=== PATIENT | male | born 1940 | race African-American/Black ===

== ENCOUNTER 2018-05-24 08:00 | Inpatient (IN) | payer MEDICARE, MEDICAID, OTHER ==
[~2018-05-24] VITALS: Ht 180.3 cm; Wt 76.7 kg
[~2018-05-24 08:00] MED LIST: BENA5TAB6 PO; GLIP10TA10 PO; INSU100I4; METF-517 PO
[2018-05-24 09:55] LABS: CHLORIDE 101 mEq/L (98-107)
[2018-05-24 10:02] LABS: BASOPHILS % 0.4 % (0.0-2.0); EOSINOPHILS % 1.3 % (0.0-5.0); HEMATOCRIT. 27.9 % (42.0-52.0); HEMOGLOBIN. 8.5 g/dL (14.0-18.0); LYMPHOCYTES % 8.4 % (20.0-50.0); MEAN CORPUSCULAR HEMOGLOBIN 24.1 pg (28.0-32.0); MEAN CORPUSCULAR VOLUME 78.5 fL (80.0-94.0); MEAN PLATELET VOLUME 7.9 fl (7.4-10.4); MONOCYTES % 4.2 % (2.0-8.0); NEUTROPHILS % 85.7 % (40.0-76.0); PLATELET 308 x1000/uL (130-400); RED BLOOD CELL COUNT 3.55 mill/uL (4.7-6.1); RED CELL DISTRIBUTION WIDTH 17.7 % (11.6-14.6)
[2018-05-24] MEDS: SODIUM CHLORIDE 0.9% 1,000 ML IV SCH (10:42)
[2018-05-24] MEDS ORDERED: GUAIFENESIN 200MG/10ML SUGAR FREE UDC PO PRN (10:45)
[2018-05-24] MEDS ORDERED: ONDANSETRON HCL 4MG/2ML INJ IV PRN (10:45)
[2018-05-24] MEDS ORDERED: IPRATROPIUM/ALBUTEROL 0.5-3(2.5)MG/3ML NEB INH PRN (10:45)
[2018-05-24] MEDS ORDERED: MAGNESIUM/ALUMINUM HYDROXIDE/SIMETHICONE 30ML UDC PO PRN (10:45)
[2018-05-24] MEDS ORDERED: DOCUSATE SODIUM 100MG CAPSULE PO PRN (10:45)
[2018-05-24] MEDS ORDERED: MORPHINE SULFATE 4 MG/ML CPJ (NOT FOR IM USE) IV PRN (10:45)
[2018-05-24] MEDS ORDERED: CLONIDINE 0.1MG TABLET PO PRN (10:45)
[2018-05-24 11:04] LABS: PHOSPHORUS 2.9 mg/dL (2.5-4.9)
[2018-05-24 14:46] VITALS: BP 107/65
[2018-05-24 15:08] VITALS: BP 107/65
[2018-05-24] MEDS: MAGNESIUM OXIDE 400MG TABLET PO SCH (15:57)
[2018-05-24] MEDS ORDERED: MAGNESIUM 2 G PREMIX 50 ML IV NR (16:00)
[2018-05-24 20:00] VITALS: BP 127/64
[2018-05-24] MEDS ORDERED: DEXTROSE 50% WATER 50ML SYRINGE IV PRN (20:00)
[2018-05-24] MEDS: INSULIN LISPRO 100 UNITS/ML SUBCUT SCH (21:00)
[2018-05-24] MEDS: BLOOD SUGAR DIAGNOSTIC STRIP TEST SCH (21:42)
[2018-05-24] MEDS ORDERED: ESCI5TAB10 PO (22:51)
[2018-05-24] MEDS ORDERED: CLOP75TA33 PO (22:51)
[2018-05-24] MEDS ORDERED: SIMV40TA5 PO (22:51)
[2018-05-24] MEDS ORDERED: ACET325C5 PO (22:51)
[2018-05-24] MEDS ORDERED: ASPI-1159 PO (22:51)
[2018-05-25] VITALS (8 sets, daily range): BP systolic 99–140; BP diastolic 57–81
[2018-05-25] MEDS: SODIUM CHLORIDE 0.9% 1,000 ML IV SCH ×2 (05:33→21:51)
[2018-05-25] MEDS: BLOOD SUGAR DIAGNOSTIC STRIP TEST SCH ×4 (06:45→21:51)
[2018-05-25] MEDS: MAGNESIUM OXIDE 400MG TABLET PO SCH (09:01)
[2018-05-25] MEDS: INSULIN LISPRO 100 UNITS/ML SUBCUT SCH ×4 (09:01→21:00)
[2018-05-25 09:52] LABS: CHLORIDE 103 mEq/L (98-107)
[2018-05-25 09:53] LABS: CLARITY URINE CLEAR (CLEAR); COLOR URINE YELLOW (YELLOW); KETONES URINE NEGATIVE (NEGATIVE); LEUKOCYTE ESTERASE URINE NEGATIVE (NEGATIVE); NITRITE URINE NEGATIVE (NEGATIVE); OCCULT BLOOD URINE NEGATIVE (NEGATIVE); PROTEIN URINE NEGATIVE (NEGATIVE); SPECIFIC GRAVITY URINE 1.006 (1.005-1.030); UROBILINOGEN URINE 0.2 E.U./dL (0.2-1.0)
[2018-05-25 09:57] LABS: BASOPHILS % 0.4 % (0.0-2.0); EOSINOPHILS % 2.1 % (0.0-5.0); HEMOGLOBIN. 8.2 g/dL (14.0-18.0); LYMPHOCYTES % 11.6 % (20.0-50.0); MEAN CORPUSCULAR HEMOGLOBIN 24.8 pg (28.0-32.0); MEAN CORPUSCULAR VOLUME 78.4 fL (80.0-94.0); MEAN PLATELET VOLUME 7.6 fl (7.4-10.4); MONOCYTES % 6.2 % (2.0-8.0); NEUTROPHILS % 79.7 % (40.0-76.0); PLATELET 294 x1000/uL (130-400); RED BLOOD CELL COUNT 3.32 mill/uL (4.7-6.1); RED CELL DISTRIBUTION WIDTH 17.8 % (11.6-14.6)
[2018-05-25 10:00] LABS: LDL CHOLESTEROL 34 mg/dL (5-100)
[2018-05-25 10:05] LABS: HDL CHOLESTEROL 49 mg/dL (40-59)
[2018-05-25 10:05] LABS: *BARBITURATES SCREEN URINE NEGATIVE (NEGATIVE)
[2018-05-25 10:06] LABS: *AMPHETAMINES SCREEN URINE NEGATIVE (NEGATIVE); *BENZODIAZEPINES SCREEN URINE NEGATIVE (NEGATIVE); *COCAINE SCREEN URINE NEGATIVE (NEGATIVE); METHADONE URINE SCREEN NEGATIVE (NEGATIVE); OPIATES URINE SCREEN NEGATIVE (NEGATIVE); PHENCYCLIDINE URINE SCREEN NEGATIVE (NEGATIVE)
[2018-05-25 10:07] LABS: CANNABINOID URINE SCREEN NEGATIVE (NEGATIVE)
[2018-05-25 10:38] LABS: CREATINE KINASE 102 IU/L (39-308)
[2018-05-25 10:39] LABS: CREATINE KINASE MB FRACTION < 1.0 ng/mL (0.5-3.6)
[2018-05-25] MEDS ORDERED: BENAZEPRIL 5MG TABLET PO SCH (13:15)
[2018-05-25 15:23] LABS: TOTAL IRON BINDING CAPACITY 239 ug/dL (250-450)
[2018-05-25 15:41] LABS: FOLIC ACID (FOLATE) SERUM 12.4 ng/mL (>5.38)
[2018-05-26] VITALS: BP 128/58
[2018-05-26] MEDS: SODIUM CHLORIDE 0.9% 1,000 ML IV SCH (02:42)
[2018-05-26 04:00] VITALS: BP 137/70
[2018-05-26] MEDS: BLOOD SUGAR DIAGNOSTIC STRIP TEST SCH (06:25)
[2018-05-26 06:40] LABS: BASOPHILS % 0.4 % (0.0-2.0); EOSINOPHILS % 3.1 % (0.0-5.0); HEMATOCRIT. 25.2 % (42.0-52.0); HEMOGLOBIN. 7.9 g/dL (14.0-18.0); LYMPHOCYTES % 20.6 % (20.0-50.0); MEAN CORPUSCULAR HEMOGLOBIN 24.5 pg (28.0-32.0); MEAN PLATELET VOLUME 7.5 fl (7.4-10.4); MONOCYTES % 7.2 % (2.0-8.0); NEUTROPHILS % 68.7 % (40.0-76.0); PLATELET 295 x1000/uL (130-400); RED BLOOD CELL COUNT 3.23 mill/uL (4.7-6.1); RED CELL DISTRIBUTION WIDTH 17.4 % (11.6-14.6)
[2018-05-26 07:01] LABS: CHLORIDE 105 mEq/L (98-107)
[2018-05-26 09:53] VITALS: BP 129/129
[2018-05-26 16:00] VITALS: BP 164/91
[2018-05-26 20:00] VITALS: BP 150/79
== END 2018-05-26 10:03 | disposition left against medical advice (07) | DRG 73 ==
LOC: ER 08:00 → 7WST 11:09 → EDBEDREQTM 11:13 → EDBEDREQ 11:13 → ENRESERV 11:59
PROVIDERS: ADMIT Internal Medicine; ATTEND Internal Medicine
DX: G90.8 Other disorders of autonomic nervous system (principal); E43 Unspecified severe protein-calorie malnutrition; E87.1 Hypo-osmolality and hyponatremia; D50.9 Iron deficiency anemia, unspecified; E11.43 Type 2 diabetes mellitus with diabetic autonomic (poly)neuropathy; E78.5 Hyperlipidemia, unspecified; E83.42 Hypomagnesemia; I10 Essential (primary) hypertension; I25.10 Atherosclerotic heart disease of native coronary artery without angina pectoris; Z79.02 Long term (current) use of antithrombotics/antiplatelets; Z79.4 Long term (current) use of insulin; Z79.82 Long term (current) use of aspirin; Z86.73 Personal history of transient ischemic attack (TIA), and cerebral infarction without residual deficits; Z87.11 Personal history of peptic ulcer disease; Z79.899 Other long term (current) drug therapy; Z88.5 Allergy status to narcotic agent; Z88.1 Allergy status to other antibiotic agents; Z68.23 Body mass index [BMI] 23.0-23.9, adult
CPT/HCPCS: 36415; 71045; 80048; 80061; 80305; 82550; 82553; 82607; 82728; 82746; 82962; 83036; 83540; 83550; 83735; 83880; 84100; 84443; 84484; 93005; 93306; 93880; 97162; 97165; 99285; J1815; J2270; J3475

== ENCOUNTER 2018-07-20 07:52 | Inpatient (IN) | payer MEDICARE, OTHER ==
[~2018-07-20] VITALS: Ht 175.3 cm; Wt 79.8 kg
[~2018-07-20 07:52] MED LIST changes: +ACET325C5 PO; +ASPI-1159 PO; +CLOP75TA33 PO; +ESCI5TAB10 PO; -INSU100I4; +SIMV40TA5 PO
[2018-07-20] MEDS ORDERED: SODIUM CHLORIDE 0.9% 1,000 ML IV ONE (08:09)
[2018-07-20 08:30] LABS: BASOPHILS % 0.4 % (0.0-2.0); HEMATOCRIT. 25.5 % (42.0-52.0); HEMOGLOBIN. 8.1 g/dL (14.0-18.0); LYMPHOCYTES % 9.6 % (20.0-50.0); MEAN CORPUSCULAR HEMOGLOBIN 24.6 pg (28.0-32.0); MEAN CORPUSCULAR VOLUME 77.7 fL (80.0-94.0); MEAN PLATELET VOLUME 7.5 fl (7.4-10.4); MONOCYTES % 6.4 % (2.0-8.0); NEUTROPHILS % 81.6 % (40.0-76.0); PLATELET 271 x1000/uL (130-400); RED BLOOD CELL COUNT 3.28 mill/uL (4.7-6.1)
[2018-07-20 08:34] LABS: CHLORIDE 105 mEq/L (98-107)
[2018-07-20 08:36] LABS: INR 1.1; PARTIAL THROMBOPLASTIN TIME 28.2 sec (23.4-31.0); PROTHROMBIN TIME 11.2 sec (9.6-11.0)
[2018-07-20 11:51] LABS: CLARITY URINE CLEAR (CLEAR); COLOR URINE YELLOW (YELLOW); KETONES URINE NEGATIVE (NEGATIVE); LEUKOCYTE ESTERASE URINE NEGATIVE (NEGATIVE); NITRITE URINE NEGATIVE (NEGATIVE); OCCULT BLOOD URINE NEGATIVE (NEGATIVE); PH URINE 7.5 (4.5-8.0); PROTEIN URINE TRACE (NEGATIVE); SPECIFIC GRAVITY URINE 1.015 (1.005-1.030)
[2018-07-20 12:00] VITALS: BP 127/73
[2018-07-20 12:40] VITALS: BP 123/73
[2018-07-20] MEDS ORDERED: GLIP5TAB12 PO (13:42)
[2018-07-20] MEDS ORDERED: ONDANSETRON HCL 4MG/2ML INJ IV PRN (13:45)
[2018-07-20] MEDS ORDERED: DOCUSATE SODIUM 100MG CAPSULE PO PRN (13:45)
[2018-07-20] MEDS ORDERED: IPRATROPIUM/ALBUTEROL 0.5-3(2.5)MG/3ML NEB INH PRN (13:45)
[2018-07-20] MEDS ORDERED: LORAZEPAM 0.5MG TABLET PO PRN (13:45)
[2018-07-20] MEDS ORDERED: CLONIDINE 0.1MG TABLET PO PRN (13:45)
[2018-07-20] MEDS ORDERED: DEXTROSE 50% WATER 50ML SYRINGE IV PRN (14:00)
[2018-07-20 15:21] LABS: CREATINE KINASE 86 IU/L (39-308)
[2018-07-20 15:22] LABS: CREATINE KINASE MB FRACTION < 1.0 ng/mL (0.5-3.6)
[2018-07-20 15:32] LABS: *AMPHETAMINES SCREEN URINE NEGATIVE (NEGATIVE); *BARBITURATES SCREEN URINE NEGATIVE (NEGATIVE); *BENZODIAZEPINES SCREEN URINE NEGATIVE (NEGATIVE); *COCAINE SCREEN URINE NEGATIVE (NEGATIVE); METHADONE URINE SCREEN NEGATIVE (NEGATIVE); OPIATES URINE SCREEN NEGATIVE (NEGATIVE)
[2018-07-20 15:33] LABS: CANNABINOID URINE SCREEN NEGATIVE (NEGATIVE); PHENCYCLIDINE URINE SCREEN NEGATIVE (NEGATIVE)
[2018-07-20 16:00] VITALS: BP 115/60
[2018-07-20] MEDS: BLOOD SUGAR DIAGNOSTIC STRIP TEST SCH ×2 (16:54→20:45)
[2018-07-20 17:47] LABS: LDL CHOLESTEROL 49 mg/dL (5-100)
[2018-07-20 17:49] LABS: HDL CHOLESTEROL 45 mg/dL (40-59)
[2018-07-20] MEDS: BENAZEPRIL 5MG TABLET PO SCH (17:58)
[2018-07-20] MEDS: INSULIN LISPRO 100 UNITS/ML SUBCUT SCH ×2 (18:25→20:49)
[2018-07-20 20:00] VITALS: BP_SYST 114; BP_SYST 120; BP_SYST 130; BP_DIAS 61; BP_DIAS 63; BP_DIAS 75
[2018-07-21] VITALS (7 sets, daily range): BP systolic 103–149; BP diastolic 57–78
[2018-07-21] MEDS: BLOOD SUGAR DIAGNOSTIC STRIP TEST SCH ×3 (06:02→17:10)
[2018-07-21] MEDS: INSULIN LISPRO 100 UNITS/ML SUBCUT SCH ×3 (07:00→17:40)
[2018-07-21 07:50] LABS: BASOPHILS % 0.3 % (0.0-2.0); EOSINOPHILS % 3.3 % (0.0-5.0); HEMATOCRIT. 25.8 % (42.0-52.0); HEMOGLOBIN. 8.2 g/dL (14.0-18.0); LYMPHOCYTES % 13.6 % (20.0-50.0); MEAN CORPUSCULAR HEMOGLOBIN 24.5 pg (28.0-32.0); MEAN CORPUSCULAR VOLUME 76.9 fL (80.0-94.0); MEAN PLATELET VOLUME 7.5 fl (7.4-10.4); MONOCYTES % 6.2 % (2.0-8.0); NEUTROPHILS % 76.6 % (40.0-76.0); PLATELET 265 x1000/uL (130-400); RED BLOOD CELL COUNT 3.35 mill/uL (4.7-6.1); RED CELL DISTRIBUTION WIDTH 17.1 % (11.6-14.6)
[2018-07-21 08:01] LABS: CHLORIDE 106 mEq/L (98-107)
[2018-07-21 08:08] LABS: TOTAL IRON BINDING CAPACITY 237 ug/dL (250-450)
[2018-07-21] MEDS: BENAZEPRIL 5MG TABLET PO SCH (08:41)
[2018-07-21] MEDS: GLIPIZIDE 5MG TABLET PO SCH ×2 (08:42→17:10)
[2018-07-21] MEDS ORDERED: ATORVASTATIN CALCIUM 40MG TABLET PO SCH (21:00)
== END 2018-07-21 18:03 | disposition home or self-care (01) | DRG 73 ==
LOC: ER 07:52 → EDBEDREQ 09:07 → 8WST 09:12 → ENRESERV 12:01
PROVIDERS: ADMIT Internal Medicine; ATTEND Internal Medicine
DX: G90.8 Other disorders of autonomic nervous system (principal); E43 Unspecified severe protein-calorie malnutrition; E78.5 Hyperlipidemia, unspecified; R55 Syncope and collapse; D50.9 Iron deficiency anemia, unspecified; D72.829 Elevated white blood cell count, unspecified; E11.51 Type 2 diabetes mellitus with diabetic peripheral angiopathy without gangrene; I95.9 Hypotension, unspecified; I10 Essential (primary) hypertension; I25.10 Atherosclerotic heart disease of native coronary artery without angina pectoris; Z79.82 Long term (current) use of aspirin; Z79.84 Long term (current) use of oral hypoglycemic drugs; Z82.49 Family history of ischemic heart disease and other diseases of the circulatory system; Z83.3 Family history of diabetes mellitus; Z86.73 Personal history of transient ischemic attack (TIA), and cerebral infarction without residual deficits; Z88.6 Allergy status to analgesic agent; Z79.1 Long term (current) use of non-steroidal anti-inflammatories (NSAID); Z88.5 Allergy status to narcotic agent; Z79.899 Other long term (current) drug therapy; Z89.422 Acquired absence of other left toe(s); Z89.421 Acquired absence of other right toe(s)
CPT/HCPCS: 36415; 71045; 80048; 80061; 80305; 82270; 82550; 82553; 82962; 83036; 83540; 83550; 83735; 83880; 84443; 84484; 85044; 85379; 93005; 93306; 93970; 96374; 99285; J1815; J7030

== ENCOUNTER 2019-05-21 00:35 | Emergency (ER) | payer MEDICARE, OTHER ==
[~2019-05-21] VITALS: Ht 180.3 cm; Wt 80.0 kg
[~2019-05-21 00:35] MED LIST changes: -ACET325C5 PO; -ASPI-1159 PO; -CLOP75TA33 PO; -ESCI5TAB10 PO; -GLIP10TA10 PO; +GLIP5TAB12 PO; +SIMV-46 PO; -SIMV40TA5 PO
[2019-05-21 00:57] VITALS: BP 148/80
== END 2019-05-21 01:12 | disposition left against medical advice (07) ==
LOC: ER 00:35
DX: R10.9 Unspecified abdominal pain (principal); Z53.21 Procedure and treatment not carried out due to patient leaving prior to being seen by health care provider

== ENCOUNTER 2023-02-22 16:33 | Emergency (ER) | payer MEDICARE, OTHER ==
[~2023-02-22] VITALS: Ht 188 cm; Wt 73.0 kg
[~2023-02-22 16:33] MED LIST changes: +BENA5TAB40 PO; -BENA5TAB6 PO; -GLIP5TAB12 PO; +GLIP5TAB22 PO; -METF-517 PO; +METF-817 PO
[2023-02-22] MEDS ORDERED: ONDANSETRON HCL 4MG/2ML INJ IV STA (16:38)
[2023-02-22 16:40] VITALS: TEMP 97.7; O2SAT 95
[2023-02-22] MEDS ORDERED: SODIUM CHLORIDE 0.9% 1,000 ML IV ONE (16:45)
[2023-02-22 17:23] LABS: BG BASE EXCESS -0.2 mmol/L (-2.0-2.0); BG CARBOXYHEMOGLOBIN 0.2 % (0.5-1.5); BG DEOXYHEMOGLOBIN 5.2 % (0.0-5.0); BG FRACTION INSPIRED OXYGEN 21; BG HCO3 ACT 24.6 mmol/L (22.0-26.0); BG METHEMOGLOBIN 0.3 % (0.0-1.5); BG OXYGEN SATURATION 94.8 % (92.0-98.5); BG OXYHEMOGLOBIN 94.3 % (94.0-97.0); BG PCO2 40.7 mmHg (35.0-45.0); BG PH 7.399 (7.350-7.450); BG PO2 76.2 mmHg (75.0-100.0); BG SAMPLE SITE RIGHT RADIAL; BG TOTAL HEMOGLOBIN 12.9 g/dL (12.0-18.0); BG VENT MODE ROOM AIR
[2023-02-22 19:10] LABS: BASOPHILS % 1.2 % (0.0-2.0); EOSINOPHILS % 5.1 % (0.0-5.0); HEMATOCRIT. 36.7 % (42.0-52.0); HEMOGLOBIN. 12.3 g/dL (14.0-18.0); LYMPHOCYTES % 23.7 % (20.0-50.0); MEAN CORPUSCULAR HEMOGLOBIN 29.3 pg (28.0-32.0); MEAN CORPUSCULAR HGB CONC 33.5 g/dL (31.0-37.0); MEAN CORPUSCULAR VOLUME 87.5 fL (80.0-94.0); MEAN PLATELET VOLUME 8.2 fl (7.4-10.4); MONOCYTES % 10.3 % (2.0-8.0); NEUTROPHILS % 59.7 % (40.0-76.0); PLATELET 202 x1000/uL (130-400); RED BLOOD CELL COUNT 4.19 mill/uL (4.7-6.1); RED CELL DISTRIBUTION WIDTH 13.7 % (11.6-14.6); WHITE BLOOD COUNT 4.7 x1000/uL (4.5-11.0)
[2023-02-22 19:18] LABS: PROTHROMBIN TIME 10.5 sec (9.6-11.0)
[2023-02-22 19:19] LABS: CLARITY URINE CLEAR (CLEAR); COLOR URINE YELLOW (YELLOW); GLUCOSE URINE 3+ (NEGATIVE); KETONES URINE NEGATIVE (NEGATIVE); LEUKOCYTE ESTERASE URINE NEGATIVE (NEGATIVE); NITRITE URINE NEGATIVE (NEGATIVE); OCCULT BLOOD URINE NEGATIVE (NEGATIVE); PH URINE 7.5 (4.5-8.0); PROTEIN URINE NEGATIVE (NEGATIVE); SPECIFIC GRAVITY URINE 1.038 (1.005-1.030)
[2023-02-22 19:22] LABS: BACTERIA URINE NONE SEEN; SQUAMOUS EPITHELIAL CELL URINE NONE SEEN /lpf (RARE/1+); YEAST URINE NONE SEEN
[2023-02-22 19:28] LABS: CHLORIDE 101 mEq/L (98-107); INDEX HEMOLYSI 1 (1-3); INDEX ICTERIC 1 (1-4); INDEX LIPEMIC 1 (1-3); POTASSIUM 4.3 mEq/L (3.5-5.1); SODIUM 137 mEq/L (136-145)
[2023-02-22 19:31] LABS: *AMPHETAMINES SCREEN URINE NEGATIVE (NEGATIVE); *BARBITURATES SCREEN URINE NEGATIVE (NEGATIVE); *BENZODIAZEPINES SCREEN URINE NEGATIVE (NEGATIVE); *COCAINE SCREEN URINE NEGATIVE (NEGATIVE); CANNABINOID URINE SCREEN NEGATIVE (NEGATIVE); ECSTASY MDMA SCREEN URINE NEGATIVE (NEGATIVE); METHADONE URINE SCREEN NEGATIVE (NEGATIVE); OPIATES URINE SCREEN NEGATIVE (NEGATIVE); PHENCYCLIDINE URINE SCREEN NEGATIVE (NEGATIVE)
[2023-02-22 19:37] LABS: ALANINE AMINOTRANSFERASE 18 IU/L (13-61); ALBUMIN 3.7 g/dL (3.4-5.0); ASPARTATE AMINOTRANSFERASE 14 IU/L (15-37); BETA HYDROXYBUTYRATE 0.1 mMol/L (0.0-0.3); BILIRUBIN TOTAL 0.4 mg/dL (0.1-1.0); CALCIUM 8.5 mg/dL (8.5-10.1); CARBON DIOXIDE 34 mEq/L (21-32); CREATININE 0.9 mg/dL (0.6-1.3); ETHANOL BLOOD < 10 mg/dL (<10); GLUCOSE 334 mg/dL (70-105); PROTEIN TOTAL 7.7 g/dL (6.0-8.3); TROPONIN I HIGH SENSITIVITY 6 ng/L (<78); UREA NITROGEN BLOOD 11 mg/dL (7-21)
[2023-02-22 19:45] LABS: RBC URINE 0-2 /hpf (0-2); WBC URINE 0-2 /hpf (0-2)
[2023-02-22 20:00] VITALS: BP 135/7; PULSE 83; RESP 17
== END 2023-02-22 21:08 | disposition left against medical advice (07) ==
LOC: ER 16:33
DX: E11.65 Type 2 diabetes mellitus with hyperglycemia (principal); R11.2 Nausea with vomiting, unspecified; R42 Dizziness and giddiness; Z86.73 Personal history of transient ischemic attack (TIA), and cerebral infarction without residual deficits; Z98.890 Other specified postprocedural states; Z88.8 Allergy status to other drugs, medicaments and biological substances; Z88.6 Allergy status to analgesic agent
CPT/HCPCS: 80053; 80305; 81003; 82010; 80320; 82962; 83605; 83690; 85025; 85610; 87040; 84484; 36415; 71045; 82805; 82375; 93005; 96361; 96374; 99285; 36600; J2405; J7030; G0480

== ENCOUNTER 2023-02-23 09:15 | Emergency (ER) | payer MEDICARE, OTHER ==
[~2023-02-23] VITALS: Ht 177.8 cm; Wt 73.0 kg
[2023-02-23 09:16] VITALS: O2SAT 99
[2023-02-23] MEDS ORDERED: LACTULOSE 20G/30ML UDC PO ONE (09:30)
[2023-02-23] MEDS ORDERED: SODIUM CHLORIDE 0.9% 1,000 ML IV ONE (09:45)
[2023-02-23 09:50] LABS: BASOPHILS % 0.7 % (0.0-2.0); EOSINOPHILS % 3.1 % (0.0-5.0); HEMATOCRIT. 37.4 % (42.0-52.0); HEMOGLOBIN. 12.5 g/dL (14.0-18.0); LYMPHOCYTES % 27.3 % (20.0-50.0); MEAN CORPUSCULAR HEMOGLOBIN 29.5 pg (28.0-32.0); MEAN CORPUSCULAR HGB CONC 33.5 g/dL (31.0-37.0); MEAN PLATELET VOLUME 8.1 fl (7.4-10.4); MONOCYTES % 8.3 % (2.0-8.0); NEUTROPHILS % 60.6 % (40.0-76.0); PLATELET 195 x1000/uL (130-400); RED BLOOD CELL COUNT 4.25 mill/uL (4.7-6.1); RED CELL DISTRIBUTION WIDTH 13.9 % (11.6-14.6); WHITE BLOOD COUNT 5.2 x1000/uL (4.5-11.0)
[2023-02-23 10:04] VITALS: BP 138/68; PULSE 87; RESP 18; TEMP 98.3
[2023-02-23 10:05] LABS: CHLORIDE 101 mEq/L (98-107); INDEX HEMOLYSI 1 (1-3); INDEX ICTERIC 1 (1-4); INDEX LIPEMIC 1 (1-3); POTASSIUM 3.8 mEq/L (3.5-5.1); SODIUM 138 mEq/L (136-145)
[2023-02-23 10:14] LABS: ALANINE AMINOTRANSFERASE 17 IU/L (13-61); ALBUMIN 3.8 g/dL (3.4-5.0); ASPARTATE AMINOTRANSFERASE 14 IU/L (15-37); BILIRUBIN TOTAL 0.7 mg/dL (0.1-1.0); CALCIUM 9.1 mg/dL (8.5-10.1); CARBON DIOXIDE 30 mEq/L (21-32); CREATININE 0.9 mg/dL (0.6-1.3); GLUCOSE 355 mg/dL (70-105); NT PRO B-TYPE NATRIURETIC PEP 35 pg/mL (5-125); PROTEIN TOTAL 7.8 g/dL (6.0-8.3); TROPONIN I HIGH SENSITIVITY 4 ng/L (<78); UREA NITROGEN BLOOD 11 mg/dL (7-21)
== END 2023-02-23 14:36 | disposition home or self-care (01) ==
LOC: ER 09:15
DX: R55 Syncope and collapse (principal); E11.9 Type 2 diabetes mellitus without complications; Z86.73 Personal history of transient ischemic attack (TIA), and cerebral infarction without residual deficits
CPT/HCPCS: 99285; 96360; 71045; 80053; 82962; 83880; 85025; 84484; 36415; 93005; J7030